=== PATIENT | male | born 1965 | race Caucasian/White ===

== ENCOUNTER 2018-10-29 12:17 | Emergency (ER) | payer SELFPAY ==
--- NOTE | 2018-10-29 12:19 | ER Report ---
History and Physical Time Seen By MD: 12:19 (CROW TONY DO) HPI/ROS CHIEF COMPLAINT: r flank pain HISTORY OF PRESENT ILLNESS: PT started 2 hours ago with R flank pain. Pain is now radiating to r testicle. Pt states it is sharp and 10/10 uncomfortabe. + nausea without vomiting. no change in bm. never had this pain before. PTs urine is dark. REVIEW OF SYSTEMS: Constitutional: No fever, no chills. Eyes: No discharge. ENT: No sore throat. Cardiovascular: No chest pain, no palpitations. Respiratory: No cough, no shortness of breath. Gastrointestinal: No abdominal pain, + nausea, no vomiting. Genitourinary: + dark urine Musculoskeletal: + back pain. Skin: No rashes. Neurological: No headache. (CROW TONY DO) Allergies: Coded Allergies: No Known Drug Allergies (Unverified , 10/29/18) Home Meds Active Scripts Tamsulosin Hcl (FLOMAX) 0.4 Mg Cap.er.24h, 0.4 MG PO QHS for 4 Days, #4 CAP 0 Refills first dose on 10/30/18 Prov:DINO PRATT MD 10/29/18 Oxycodone Hcl/Acetaminophen (PERCOCET 5-325 MG TABLET) 1 Each Tablet, 1 EACH PO Q4H for PAIN, #25 TAB 0 Refills Prov:DINO PRATT MD 10/29/18 Ondansetron Hcl (ZOFRAN) 4 Mg Tablet, 4 MG PO Q8H for Nausea, #15 TAB 0 Refills Prov:DINO PRATT MD 10/29/18 Ketorolac Tromethamine (KETOROLAC TROMETHAMINE) 10 Mg Tab, 10 MG PO Q6H PRN for PAIN, #20 TAB 0 Refills Prov:DINO PRATT MD 10/29/18 Reported Medications Metformin Hcl (METFORMIN HCL) 500 Mg Tablet, 1 TAB PO BID, TAB 10/29/18 Past Medical/Surgical History pmhx: dm, left kidney laceration Pshx: neg (CROW TONY DO) Reviewed Nurses Notes: Yes (CROW TONY DO) Hx Smoking: No Hx Alcohol Use: Yes (occasional) (CROW TONY DO) Constitutional Vital Sign - Last 24 Hours 10/29/18 10/29/18 10/29/18 10/29/18 12:21 12:30 12:45 13:00 Temp 97.3 Pulse 63 64 54 Resp 18 B/P (MAP) 195/125 Pulse Ox 94 95 O2 Delivery Room Air O2 Flow Rate 2.0 10/29/18 10/29/18 10/29/18 10/29/18 13:00 13:15 13:30 13:45 Pulse 67 65 58 B/P (MAP) 179/108 (131) 185/122 (143) Pulse Ox 88 91 94 92 10/29/18 10/29/18 10/29/18 10/29/18 14:00 14:15 14:30 14:45 Pulse 63 64 70 74 B/P (MAP) 179/111 (133) 166/103 (124) Pulse Ox 91 95 96 97 10/29/18 10/29/18 10/29/18 15:00 15:15 15:30 Pulse 72 B/P (MAP) 158/103 (121) 167/97 (120) Pulse Ox 96 96 95 (DINO PRATT MD) Physical Exam General Appearance: The patient is alert, has no immediate need for airway protection and no signs of toxicity. Eyes: Pupils equal and round no pallor or injection, EOMI ENT: no pharyngeal erythema or exudates, Mucous membranes are moist, TM are nl b/l Respiratory: There are no retractions, lungs are clear to auscultation. Cardiovascular: Regular rate and rhythm. pulses are equal and symmetrical Gastrointestinal: Abdomen is soft with RLQ tender, no masses, bowel sounds normal, no guarding, no rigidity or rebound Neurological: Cranial nerves II-XII grossly intact, no sensory or motor loss Skin: Warm and dry, no rashes. Musculoskeletal: Neck is supple non tender, no vertebral tenderness, + r cva tenderness Extremities are nontender, nonswollen and have full range of motion. DIFFERENTIAL DIAGNOSIS: After history and physical exam differential diagnosis was considered for kidney stone, pyelonephritis, uti (LAURORA,CROW V DO) Medical Decision Making Data Points Result Diagram: 10/29/18 1235 10/29/18 1235 Laboratory Hematology Test 10/29/18 12:32 10/29/18 12:35 Urine Color Yellow Urine Clarity Cloudy Urine pH 6.0 pH (4.8-9.5) Urine Specific [place] 1.020 Urine Protein 30 mg/dL (NEGATIVE) Urine Glucose (UA) 50 mg/dL (NEGATIVE) Urine Ketones Negative mg/dL (NEGATIVE) Urine Blood Large (NEGATIVE) Urine Nitrite Negative (NEGATIVE) Urine Bilirubin Negative (NEGATIVE) Urine Urobilinogen 2.0 mg/dL (0.2-1.9) Urine Leukocyte Esterase Negative (NEGATIVE) Urine RBC 3705 /HPF (0-2/HPF) Urine WBC 38 /HPF (0-5/HPF) Urine Squamous Epithelial Cells None /LPF (</=FEW) Urine Bacteria Negative /HPF (NONE-FEW) Urine Mucus Few /HPF (NONE-FEW) Red Blood Count 5.57 M/uL (4.00-5.60) Mean Corpuscular Volume 85.5 fL (80.0-96.0) Mean Corpuscular Hemoglobin 29.7 pg (26.0-33.0) Mean Corpuscular Hemoglobin Concent 34.8 g/dL (32.0-36.0) Red Cell Distribution Width 13.6 % (11.5-14.5) Mean Platelet Volume 7.5 fL (7.2-11.1) Neutrophils (%) (Auto) 45.5 % (39.4-72.5) Lymphocytes (%) (Auto) 37.1 % (17.6-49.6) Monocytes (%) (Auto) 8.7 % (4.1-12.4) Eosinophils (%) (Auto) 7.2 % (0.4-6.7) Basophils (%) (Auto) 1.5 % (0.3-1.4) Nucleated RBC Relative Count (auto) 0.1 /100WBC Neutrophils # (Auto) 6.5 K/uL (2.0-7.4) Lymphocytes # (Auto) 5.3 K/uL (1.3-3.6) Monocytes # (Auto) 1.2 K/uL (0.3-1.0) Eosinophils # (Auto) 1.0 K/uL (0.0-0.5) Basophils # (Auto) 0.2 K/uL (0.0-0.1) Nucleated RBC Absolute Count (auto) 0.02 K/uL Sodium Level 140 mmol/L (137-145) Potassium Level 3.5 mmol/L (3.5-5.0) Chloride Level 109 mmol/L (98-107) Carbon Dioxide Level 24 mmol/L (22-30) Blood Urea Nitrogen 14 mg/dl (9-21) Creatinine 0.90 mg/dl (0.66-1.25) Glomerular Filtration Rate Calc > 60.0 Random Glucose 114 mg/dl (75-110) Calcium Level 9.8 mg/dl (8.4-10.2) Chemistry Test 10/29/18 12:32 10/29/18 12:35 Urine Color Yellow Urine Clarity Cloudy Urine pH 6.0 pH (4.8-9.5) Urine Specific [place] 1.020 Urine Protein 30 mg/dL (NEGATIVE) Urine Glucose (UA) 50 mg/dL (NEGATIVE) Urine Ketones Negative mg/dL (NEGATIVE) Urine Blood Large (NEGATIVE) Urine Nitrite Negative (NEGATIVE) Urine Bilirubin Negative (NEGATIVE) Urine Urobilinogen 2.0 mg/dL (0.2-1.9) Urine Leukocyte Esterase Negative (NEGATIVE) Urine RBC 3705 /HPF (0-2/HPF) Urine WBC 38 /HPF (0-5/HPF) Urine Squamous Epithelial Cells None /LPF (</=FEW) Urine Bacteria Negative /HPF (NONE-FEW) Urine Mucus Few /HPF (NONE-FEW) White Blood Count 14.2 k/uL (4.5-11.0) Red Blood Count 5.57 M/uL (4.00-5.60) Hemoglobin 16.6 g/dL (14.0-18.0) Hematocrit 47.6 % (42.0-52.0) Mean Corpuscular Volume 85.5 fL (80.0-96.0) Mean Corpuscular Hemoglobin 29.7 pg (26.0-33.0) Mean Corpuscular Hemoglobin Concent 34.8 g/dL (32.0-36.0) Red Cell Distribution Width 13.6 % (11.5-14.5) Platelet Count 412 K/uL (150-450) Mean Platelet Volume 7.5 fL (7.2-11.1) Neutrophils (%) (Auto) 45.5 % (39.4-72.5) Lymphocytes (%) (Auto) 37.1 % (17.6-49.6) Monocytes (%) (Auto) 8.7 % (4.1-12.4) Eosinophils (%) (Auto) 7.2 % (0.4-6.7) Basophils (%) (Auto) 1.5 % (0.3-1.4) Nucleated RBC Relative Count (auto) 0.1 /100WBC Neutrophils # (Auto) 6.5 K/uL (2.0-7.4) Lymphocytes # (Auto) 5.3 K/uL (1.3-3.6) Monocytes # (Auto) 1.2 K/uL (0.3-1.0) Eosinophils # (Auto) 1.0 K/uL (0.0-0.5) Basophils # (Auto) 0.2 K/uL (0.0-0.1) Nucleated RBC Absolute Count (auto) 0.02 K/uL Glomerular Filtration Rate Calc > 60.0 Calcium Level 9.8 mg/dl (8.4-10.2) Urinalysis Test 10/29/18 12:32 Urine Color Yellow Urine Clarity Cloudy Urine pH 6.0 pH (4.8-9.5) Urine Specific [place] 1.020 Urine Protein 30 mg/dL (NEGATIVE) Urine Glucose (UA) 50 mg/dL (NEGATIVE) Urine Ketones Negative mg/dL (NEGATIVE) Urine Blood Large (NEGATIVE) Urine Nitrite Negative (NEGATIVE) Urine Bilirubin Negative (NEGATIVE) Urine Urobilinogen 2.0 mg/dL (0.2-1.9) Urine Leukocyte Esterase Negative (NEGATIVE) Urine RBC 3705 /HPF (0-2/HPF) Urine WBC 38 /HPF (0-5/HPF) Urine Squamous Epithelial Cells None /LPF (</=FEW) Urine Bacteria Negative /HPF (NONE-FEW) Urine Mucus Few /HPF (NONE-FEW) (DINO PRATT MD) EKG/Imaging Imaging FACILITY: [facility] PATIENT NAME: Teodoro Downey : 1965 MR: [id number] V: [id number] EXAM DATE: ORDERING PHYSICIAN: CROW TONY TECHNOLOGIST: Location: [facility] Patient: Teodoro Downey : 1965 Visit/Account:[id number] Date of Sevice: 10/29/2018 KIDNEYS EXAMINATION: Renal ultrasound. History: Possible mass on right kidney COMPARISON STUDIES: CT of the abdomen and pelvis October 29, 2018 FINDINGS: Kidneys: Right kidney- 11.7 x 6.8 x 6.6 cm Left kidney- 12.1 x 6.1 x 5.3 cm Uniform and symmetric blood flow in each kidney by Doppler ultrasound. Hydronephrosis: none There is 1.1 x 1 x 1 cm cyst in the upper pole of the right kidney. The hyperdensity of this mass seen on CT was likely related to a proteinaceous or hemorrhagic cyst. There is no evidence of hydronephrosis. Two calculi are seen in the mid pole calyces of the right kidney. Bladder: Prevoid volume 154 mL. Post void residual 24.4 mL. Bilateral ureteral jets were identified. Abdominal aorta and IVC: Aorta and IVC are patent by Doppler ultrasound. IMPRESSION: 1.1 cm cyst upper pole of the right kidney. The hyperdensity seen on today's CT is likely related to a proteinaceous or hemorrhagic cyst Nonobstructing right-sided nephrolithiasis Report Dictated By: Marcella Mcclendon MD at 10/29/2018 3:38 PM Report E-Signed By: Marcella Mcclendon MD at 10/29/2018 3:42 PM WSN:[email or web address] (DINO PRATT MD) ED Course/Re-evaluation Clinical Indication for ER IV: IV Access ED Course pain medication, ct r/o stone, check urine and labs PTs pain improved with dilaudid. PTs CT shows 3mm stone in RUv J which is most likely the cause of pts pain. Pt does have other incidental findings one of which is possible mass on cortical area which was recommended to obtain US. 10/29/2018 3:02:29 pm Pt signed out to Dr. Pratt pending US (CROW TONY DO) Decision to Disposition Date: Oct 29, 2018 Decision to Disposition Time: 16:13 Turned Over Accepted care of patient at this time. 10/29/2018 3:23:51 pm patient with 3 mm left-sided kidney stone at the UVJ. Also CT scan showed evidence of a cyst in the kidney that was recommended for ultrasound. Ultrasound has been performed awaiting official results (DINO PRATT MD) Depart Departure Latest Vital Signs Vital Signs Date Time Temp Pulse Resp B/P (MAP) Pulse Ox O2 Delivery O2 Flow Rate FiO2 10/29/18 15:30 72 167/97 (120) 95 10/29/18 13:00 2.0 10/29/18 12:21 97.3 18 Room Air (DINO PRATT MD) Impression: Primary Impression: Kidney stone Condition: Improved Disposition: HOME OR SELF-CARE New Scripts Tamsulosin Hcl (FLOMAX) 0.4 Mg Cap.er.24h 0.4 MG PO QHS for 4 Days, #4 CAP 0 Refills first dose on 10/30/18 Prov: DINO PRATT MD 10/29/18 Oxycodone Hcl/Acetaminophen (PERCOCET 5-325 MG TABLET) 1 Each Tablet 1 EACH PO Q4H for PAIN, #25 TAB 0 Refills Prov: DINO PRATT MD 10/29/18 Ondansetron Hcl (ZOFRAN) 4 Mg Tablet 4 MG PO Q8H for Nausea, #15 TAB 0 Refills Prov: DINO PRATT MD 10/29/18 Ketorolac Tromethamine (KETOROLAC TROMETHAMINE) 10 Mg Tab 10 MG PO Q6H PRN for PAIN, #20 TAB 0 Refills Prov: DINO PRATT MD 10/29/18 Patient Instructions: Kidney Stones (GEN) Additional Instructions: Follow-up with your family doctor or urologist in 72 hours if your symptoms persist or sooner if anytime you develop fever or uncontrolled pain. Percocet: 1 tablet every 4 hours as needed for pain Toradol: 1 tablet every 6 hours as needed for pain you may combining this with Percocet Zofran: 1 tablet as needed for nausea Flomax: 1 tablet at bedtime tonight Fill your prescriptions for these medications and take as directed CROW TONY DO Oct 29, 2018 12:19 DINO PRATT MD Oct 29, 2018 15:24
[2018-10-29] MEDS ORDERED: METF-450 PO (12:23)
[2018-10-29] MEDS ORDERED: HYDROMORPHONE HCL 1 MG/ML SYRINGE IVP ONE (12:35)
[2018-10-29 12:41] LABS: PLATELET COUNT, AUTOMATED 412 K/uL (150-450)
--- NOTE | 2018-10-29 13:22 | RADIOLOGY IMAGING REPORT ---
FACILITY: [facility] PATIENT NAME: Teodoro Downey : 1965 MR: [id number] V: [id number] EXAM DATE: ORDERING PHYSICIAN: CROW TONY TECHNOLOGIST: Location: [facility] [place] Patient: Teodoro Downey : 1965 Visit/Account:[id number] Date of Sevice: 10/29/2018 CT ABDOMEN PELVIS W/O CON HISTORY: r flank pain;nausea TECHNIQUE: Axial images acquired through the abdomen/pelvis. Coronal and sagittal reformatting also performed. No IV contrast administered.Dose Lowering Technique One of the following dose optimization techniques was utilized in the performance of this exam: Autom ated exposure control; adjustment of the mA and/or kV according to the patient's size; or use of an i terative reconstruction technique. Specific details can be referenced in the facility's radiology C T exam operational policy. COMPARISON: None. FINDINGS: Visualized lung bases: Mild ground glass opacities are seen in the inferior lingula and in both lowe r lobes which may be related to dependent changes. There is also a focal patchy areas of airspace co nsolidation the posterior aspect the right lower lobe consistent with atelectasis, scarring or develo ping infiltrate. Coronary artery calcifications are identified in the LAD Hepatobiliary: Cholelithiasis although no evidence of biliary ductal dilatation. There is mild diff use hepatic steatosis Spleen: Negative. Adrenals: Negative. Pancreas: Negative. Kidneys ureters and bladder: 1.2 cm hyperattenuating cortical mass projects from the lateral upper po le of the right kidney which is indeterminate. There are two Separate punctate 1 mm calculi in the l ower pole calyces of the right kidney. There are two contiguous calcifications in an mid pole calyx of the right kidney each measuring approximately 2.5 mm in diameter . There is mild right hydroneph rosis and mild right hydroureter secondary to a 3 mm calculus at the right UVJ. No calculi identified in the left renal collecting system and no evidence of left hydronephrosis or l eft hydroureter. The bladder is mostly decompressed therefore not ideally evaluated Genitalia: Negative. GI: Negative. Vessels/spaces/nodes: Minimal atherosclerotic calcifications in the abdominal aorta and branch vesse ls Bones/soft tissues: Negative. Additional findings: None pertinent. IMPRESSION: All groundglass opacities in the inferior lingula and both lower lobes may be related to dependent ch rohini Focal patchy areas of airspace consolidation posterior aspect right lower lobe consistent with atelec tasis, scarring or developing infiltrate Coronary artery calcifications are identified in the LAD Cholelithiasis although no evidence of biliary ductal dilatation Mild diffuse hepatic steatosis 1.2 cm indeterminate hypoattenuating cortical mass projects from the lateral upper pole the right kid marivel which is indeterminate. This could be further evaluated with ultrasound or MR Nonobstructing calculi seen in the right renal collecting system There is mild right hydronephrosis and mild right hydroureter secondary to 3 mm calculus in the dista l right ureter at the right UVJ. Report Dictated By: Marcella Mcclendon MD at 10/29/2018 1:09 PM Report E-Signed By: Marcella Mcclendon MD at 10/29/2018 1:19 PM WSN:[email or web address]
[2018-10-29] MEDS ORDERED: NS(*) 0.9% 1000 ML BAG 1,000 ML IV ONE (13:30)
[2018-10-29] MEDS ORDERED: KETOROLAC 30 MG/ML VIAL IVP ONE (13:35)
--- NOTE | 2018-10-29 15:46 | RADIOLOGY IMAGING REPORT ---
FACILITY: [facility] PATIENT NAME: Teodoro Downey : 1965 MR: [id number] V: [id number] EXAM DATE: ORDERING PHYSICIAN: CROW TONY TECHNOLOGIST: Location: [facility] Patient: eTodoro Downey : 1965 Visit/Account:[id number] Date of Sevice: 10/29/2018 KIDNEYS EXAMINATION: Renal ultrasound. History: Possible mass on right kidney COMPARISON STUDIES: CT of the abdomen and pelvis October 29, 2018 FINDINGS: Kidneys: Right kidney- 11.7 x 6.8 x 6.6 cm Left kidney- 12.1 x 6.1 x 5.3 cm Uniform and symmetric blood flow in each kidney by Doppler ultrasound. Hydronephrosis: none There is 1.1 x 1 x 1 cm cyst in the upper pole of the right kidney. The hyperdensity of this mass se en on CT was likely related to a proteinaceous or hemorrhagic cyst. There is no evidence of hydronep hrosis. Two calculi are seen in the mid pole calyces of the right kidney. Bladder: Prevoid volume 154 mL. Post void residual 24.4 mL. Bilateral ureteral jets were identified . Abdominal aorta and IVC: Aorta and IVC are patent by Doppler ultrasound. IMPRESSION: 1.1 cm cyst upper pole of the right kidney. The hyperdensity seen on today's CT is likely related to a proteinaceous or hemorrhagic cyst Nonobstructing right-sided nephrolithiasis Report Dictated By: Marcella Mcclendon MD at 10/29/2018 3:38 PM Report E-Signed By: Marcella Mcclendon MD at 10/29/2018 3:42 PM WSN:[email or web address]
[2018-10-29 16:00] VITALS: BP 138/96
[2018-10-29] MEDS ORDERED: OXYC-865 PO (16:09)
[2018-10-29] MEDS ORDERED: KET10 PO (16:09)
[2018-10-29] MEDS ORDERED: TAMS0.4C25 PO (16:09)
[2018-10-29] MEDS ORDERED: ONDA4TAB97 PO (16:09)
[2018-10-29] MEDS ORDERED: KETOROLAC TROM 10 MG TAB TH PO ONE (16:15)
[2018-10-29] MEDS ORDERED: TAMSULOSIN HCL 0.4 MG CAP PO ONE (16:15)
[2018-10-29] MEDS ORDERED: ONDANSETRON 4 MG ODT TH SL ONE (16:15)
[2018-10-29] MEDS ORDERED: oxyCODONE/ACETAMIN 5/325MG TH 2 TAB/BOTTLE PO ONE (16:15)
== END 2018-10-29 16:30 | disposition home or self-care (01) ==
LOC: ER 13:29
DX: N13.2 Hydronephrosis with renal and ureteral calculous obstruction (principal); N13.4 Hydroureter; N28.1 Cyst of kidney, acquired
CPT/HCPCS: 74176; 76705; 81001; 85025; 96361; 96374; 96375; 99284; J1170; J1885; J7030; S0119; 82310; 82374; 82435; 82565; 82947; 84132; 84295; 84520